=== PATIENT | female | born 1950 | race Caucasian/White ===

== ENCOUNTER → 2016-07-24 | Outpatient (CLI) | payer OTHER, BC ==
[~2016-07-24] MED LIST: ADVAIR 250/501 DISK IH; AXERT PO; AXERT12.5 MG PO; Advair 250/50 Diskus IH; CALAN SR,COVER180 MG PO; CELEBREX200 MG PO; CLARITIN,ALAVAR10 MG PO; Claritin,Alavart PO; Dilaudid PO; Ecotrin PO; Excedrin PO; FISH OIL500 MG PO; Feosol PO; GLUCOSAMINE &1 EAC1 PO; HYDROCODON-ACE1 EAC7 PO; LORTAB 5-325 M1 EACH PO; Move Free Advanced T PO; OMEGA 3-6-91200 MG PO; PRAVACHOL40 MG PO; PROTONIX40 MG PO; Pravachol PO; Protonix PO; SKELAXIN800 MG PO; Skelaxin PO; Super B Complex-C PO; Theragran PO; VENTOLIN HFA18 GM IH; VITAMIN E400 UNIT PO; Vitamin-E PO; ZETIA10 MG PO; celeBREX PO
== END | disposition home or self-care (01) ==
DX: R26.2 Difficulty in walking, not elsewhere classified (principal); M17.12 Unilateral primary osteoarthritis, left knee; M25.562 Pain in left knee; M25.662 Stiffness of left knee, not elsewhere classified; M62.81 Muscle weakness (generalized)
CPT/HCPCS: 97110 GP; 97150 GO; 97161 GP; 97165 GO; G8978 GP; G8979 GP; G8980 GP; G8990 GO; G8991 GO

== ENCOUNTER 2016-08-28 08:45 | Inpatient (IN) | payer OTHER, BC ==
[~2016-08-28] VITALS: Ht 162.6 cm; Wt 117.0 kg
[~2016-08-28 08:45] MED LIST changes: +IRON325 MG PO
[2016-08-28 09:12] VITALS: BP 135/61
[2016-08-28 13:42] LABS: MCH 30.3 PG (29.0-34.0); MCHC 32.9 G/DL (30.0-36.0); MCV 91.9 FL (83-99); MEAN PLAT.VOLUME 10.9 uM^3 (9.5-12.4); PLATELET COUNT 147 K/uL (156-360); RBC DIS.WIDTH-CV 12.2 % (11.8-14.6); RBC DIS.WIDTH-SD 41.5 % (39-53); RED BLOOD COUNT 4.46 M/uL (3.80-5.20)
[2016-08-28 13:43] LABS: IMM.PLATELET FRACTION 5.2 (1-7); WHITE BLOOD COUNT 8.2 K/uL (4.1-10.2)
[2016-08-28 15:23] VITALS: BP 126/78
[2016-08-28 20:30] VITALS: BP 129/60
[2016-08-29 00:07] VITALS: BP 134/63
[2016-08-29 03:47] VITALS: BP 152/64
[2016-08-29 06:01] LABS: HEMATOCRIT 37.3 % (36.0-46.0)
[2016-08-29 06:17] LABS: ANION GAP 16 MEQ/L (2-14); CHLORIDE 100 MEQ/L (99-109); GFR ESTIMATE (CALCULATED) > 59 mL/min/; GLUCOSE 146 mg/dL (70-99); POTASSIUM 3.6 MEQ/L (3.7-5.4); SAMPLE HEMOLYSIS CHECK 0; SAMPLE ICTERIC CHECK 0; SAMPLE LIPEMIA CHECK 0; SODIUM 136 MEQ/L (136-147); UREA NITROGEN (BUN) 9 mg/dL (9-23)
[2016-08-29 08:00] VITALS: BP 145/70
[2016-08-29 12:11] VITALS: BP 136/60
[2016-08-29 15:55] VITALS: BP 119/57
[2016-08-29 20:16] VITALS: BP 166/73
[2016-08-30] VITALS: BP 110/57
[2016-08-30 04:00] VITALS: BP 107/54
[2016-08-30 06:46] LABS: HEMATOCRIT 29.4 % (36.0-46.0); MCV 90.7 FL (83-99)
[2016-08-30 06:52] LABS: ANION GAP 8 MEQ/L (2-14); CHLORIDE 101 MEQ/L (99-109); GFR ESTIMATE (CALCULATED) > 59 mL/min/; GLUCOSE 134 mg/dL (70-99); POTASSIUM 3.8 MEQ/L (3.7-5.4); SAMPLE HEMOLYSIS CHECK 0; SAMPLE ICTERIC CHECK 0; SAMPLE LIPEMIA CHECK 0; SODIUM 138 MEQ/L (136-147); UREA NITROGEN (BUN) 11 mg/dL (9-23)
[2016-08-30 08:12] VITALS: BP 95/53
[2016-08-30] MEDS ORDERED: ENDOCET 5-3251 EACH PO (08:52)
[2016-08-30] MEDS ORDERED: LOVENOX40 MG/0.4 SC (08:52)
[2016-08-30 11:56] VITALS: BP 116/59
[2016-08-30 15:07] VITALS: BP 133/65
== END 2016-08-30 15:15 | DRG 470 ==
LOC: 2SOUTH 08:45 → 3WEST 14:55 → 2SOUTH 15:57 → 3WEST 08-30 15:15
PROVIDERS: Orthopaedic Surgery; Physician Assistant
PROC: 0SRD0J9 Replacement of Left Knee Joint with Synthetic Substitute, Cemented, Open Approach (ICD-10-PCS; principal; 2016-08-28)
DX: M17.12 Unilateral primary osteoarthritis, left knee (principal); E87.6 Hypokalemia; I10 Essential (primary) hypertension; E11.9 Type 2 diabetes mellitus without complications; K21.9 Gastro-esophageal reflux disease without esophagitis; E78.5 Hyperlipidemia, unspecified; G47.30 Sleep apnea, unspecified; J45.909 Unspecified asthma, uncomplicated; E66.01 Morbid (severe) obesity due to excess calories; Z96.651 Presence of right artificial knee joint; Z68.41 Body mass index [BMI] 40.0-44.9, adult; Z98.84 Bariatric surgery status; Z87.891 Personal history of nicotine dependence
CPT/HCPCS: 73560; 80048; 85014; 85018; 85027; 94640; 94640 76; 94799; 99202; C1713; J0131; J0690; J1100; J1170; J1650; J2250; J2405; J3010; J7030; J7050

== ENCOUNTER 2016-09-05 11:58 | Emergency (ER) | payer OTHER, BC ==
[~2016-09-05] VITALS: Ht 162.6 cm; Wt 136.0 kg
[~2016-09-05 11:58] MED LIST changes: +ENDOCET 5-3251 EACH PO; +LOVENOX40 MG/0.4 SC
[2016-09-05 12:53] LABS: HEMATOCRIT 32.9 % (36.0-46.0); MCH 29.4 PG (29.0-34.0); MCHC 32.5 G/DL (30.0-36.0); MCV 90.4 FL (83-99); MEAN PLAT.VOLUME 10.1 uM^3 (9.5-12.4); NRBC (%) 0.2 /100 WBC (0-0); PLATELET COUNT 189 K/uL (156-360); RBC DIS.WIDTH-SD 42.5 % (39-53); RED BLOOD COUNT 3.64 M/uL (3.80-5.20); WHITE BLOOD COUNT 9.3 K/uL (4.1-10.2)
[2016-09-05 13:02] LABS: CHLORIDE 103 mEq/L (99-109); POTASSIUM 3.5 mEq/L (3.7-5.4); SODIUM 140 mEq/L (136-147)
[2016-09-05 13:03] LABS: GLUCOSE 105 mg/dL (70-99)
[2016-09-05 13:05] LABS: ANION GAP 11 MEQ/L (2-14)
[2016-09-05 13:07] LABS: GFR ESTIMATE (CALCULATED) > 59 mL/min/
[2016-09-05 13:08] LABS: UREA NITROGEN (BUN) 15 mg/dL (9-23)
[2016-09-05] MEDS ORDERED: VENTOLIN HFA18 GM IH (15:04)
[2016-09-05] MEDS ORDERED: PREDNISONE50 MG PO (15:07)
[2016-09-05 15:20] VITALS: BP 123/59
== END 2016-09-05 15:21 | disposition home or self-care (01) ==
LOC: EME 11:58 → RME 14:09
DX: J45.901 Unspecified asthma with (acute) exacerbation (principal); Z96.659 Presence of unspecified artificial knee joint; Z98.890 Other specified postprocedural states; I10 Essential (primary) hypertension; Z87.891 Personal history of nicotine dependence
CPT/HCPCS: 71020; 80048; 85027; 93005; 94640; 99281; 99284